=== PATIENT | male | born 1965 | race Caucasian/White ===

== ENCOUNTER 2021-03-13 17:43 | Emergency (ER) | payer SELFPAY ==
[~2021-03-13] VITALS: Ht 182.9 cm; Wt 73.0 kg
--- NOTE | 2021-03-13 17:58 | NUR ---
TO ER BED 4, [facility]IB[facility] 77 [facility] C/O HIGH BP 200 SYSTOLIC. AAOX3, BREATHING EVEN AND NON LABORED, DENIES ANY PAIN OR DISCOMFORT.
--- NOTE | 2021-03-13 18:10 | NUR ---
IV LINE ESTABLISHED BLOOD DRAWN AND SENT TO LAB.
[2021-03-13] MEDS ORDERED: LABETALOL HCL IV 100MG VIAL ONE (18:15)
[2021-03-13 18:20] LABS: BASOPHILS # (AUTO) 0.1 K/uL (0.0-0.2); BASOPHILS % (AUTO) 0.7 % (0.0-2.0); EOSINOPHILS % (AUTO) 10.6 % (0.0-6.0); HEMATOCRIT 32 % (39-51); HEMOGLOBIN 10.7 g/dL (13.5-17.5); LYMPHOCYTES # (AUTO) 1.4 K/uL (0.8-4.8); LYMPHOCYTES % (AUTO) 14.5 % (20.0-44.0); MEAN CORPUSCULAR HGB CONC 33 g/dl (31.0-36.0); MEAN CORPUSCULAR VOLUME 94 fL (80-96); MONOCYTES # (AUTO) 0.8 K/uL (0.1-1.30); MONOCYTES % (AUTO) 7.9 % (2.0-12.0); NEUTROPHILS # (AUTO) 6.5 K/uL (1.8-8.9); NEUTROPHILS % (AUTO) 66.3 % (43.0-81.0); PLATELET COUNT (AUTO) 275 K/uL (150-450); RED BLOOD CELL COUNT(AUTO) 3.42 MIL/uL (4.5-6.0); WHITE BLOOD COUNT (AUTO) 9.7 K/uL (4.3-11.0)
[2021-03-13 18:28] LABS: CALCIUM, SERUM 8.3 mg/dL (8.5-10.1); CARBON DIOXIDE 27 mmol/L (21-32); CHLORIDE 111 mmol/L (98-107); CREATININE 2.1 mg/dL (0.6-1.3); GLUCOSE 97 mg/dL (74-106); POTASSIUM 4.1 mmol/L (3.5-5.1); SODIUM SERUM 144 mmol/L (136-145); UREA NITROGEN, BLOOD 47 mg/dL (7-18)
[2021-03-13] MEDS ORDERED: LABETALOL 20 MG/4 ML VIAL IV ONE (18:30)
[2021-03-13] MEDS ORDERED: AMLO-213 PO (18:49)
--- NOTE | 2021-03-13 18:59 | NUR ---
DR MATA AT BEDSIDE
--- NOTE | 2021-03-13 19:00 | NUR ---
IV removed. Catheter intact and site benign. Pressure and 4x4 applied to site. No bleeding noted.Patient discharged to home in stable condition. Written and verbal after care instructions given. Patient verbalizes understanding of instruction.
[2021-03-13 19:10] VITALS: BP 170/87
== END 2021-03-13 19:10 | disposition home or self-care (01) ==
LOC: ER 18:11
DX: I12.9 Hypertensive chronic kidney disease with stage 1 through stage 4 chronic kidney disease, or unspecified chronic kidney disease (principal); E11.22 Type 2 diabetes mellitus with diabetic chronic kidney disease; N18.9 Chronic kidney disease, unspecified; Z79.899 Other long term (current) drug therapy
CPT/HCPCS: 36415; 80048; 84484; 85025; 93005; 96374; 99291; J3490 ×2

== ENCOUNTER 2022-12-03 16:24 | Emergency (ER) | payer MEDICARE, OTHER ==
[~2022-12-03] VITALS: Ht 182.9 cm; Wt 64.0 kg
[~2022-12-03 16:24] MED LIST: AMLO-213 PO
[2022-12-03 16:40] VITALS: TEMP 98.4
[2022-12-03] MEDS ORDERED: LIDOCAINE 1% INJ 50 ML MDV IJ ONE (17:00)
[2022-12-03] MEDS ORDERED: CLOP75TA15 PO (17:47)
[2022-12-03] MEDS ORDERED: ERGO500093 PO (17:47)
[2022-12-03] MEDS ORDERED: ATOR80TA PO (17:47)
[2022-12-03] MEDS ORDERED: HYDR-4077 PO (17:47)
[2022-12-03] MEDS ORDERED: ASPI-1169 PO (17:47)
[2022-12-03 17:58] LABS: BASOPHILS # (AUTO) 0.1 K/uL (0.0-0.2); EOSINOPHILS # (AUTO) 1.5 K/uL (0.0-0.7); EOSINOPHILS % (AUTO) 22.6 % (0.0-6.0); HEMATOCRIT 30 % (39-51); HEMOGLOBIN 9.7 g/dL (13.5-17.5); LYMPHOCYTES # (AUTO) 1.4 K/uL (0.8-4.8); MEAN CORPUSCULAR HEMOGLOBIN 31 PG (26.0-33.0); MEAN CORPUSCULAR HGB CONC 33 g/dl (31.0-36.0); MEAN CORPUSCULAR VOLUME 95 fL (80-96); MONOCYTES # (AUTO) 0.4 K/uL (0.1-1.30); MONOCYTES % (AUTO) 6.6 % (2.0-12.0); NEUTROPHILS # (AUTO) 3.4 K/uL (1.8-8.9); NEUTROPHILS % (AUTO) 49.8 % (43.0-81.0); PLATELET COUNT (AUTO) 202 K/uL (150-450); RED BLOOD CELL COUNT(AUTO) 3.11 MIL/uL (4.5-6.0); WHITE BLOOD COUNT (AUTO) 6.8 K/uL (4.3-11.0)
[2022-12-03 18:05] LABS: CALCIUM, SERUM 9.4 mg/dL (8.5-10.1); CREATININE 6.6 mg/dL (0.6-1.3); POTASSIUM 4.6 mmol/L (3.5-5.1)
[2022-12-03 18:11] LABS: INR 1.08 (0.91-1.10); PARTIAL THROMBOPLASTIN TIME 45.8 SEC (24.3-34.3); PROTHROMBIN TIME 11.3 SECS (9.2-11.1)
[2022-12-03 19:16] LABS: EOSINOPHILS % (MANUAL) 23 % (0-4); LYMPHOCYTES % (MANUAL) 24 % (16-48); MONOCYTES % (MANUAL) 8 % (0-11.0); NEUTROPHILS % (MANUAL) 45 (42-76)
[2022-12-03 19:17] LABS: ANISOCYTOSIS 1+; PLATELET ESTIMATE ADEQUATE
[2022-12-03] MEDS ORDERED: hydrALAZINE HCL IV 20 MG VIAL ONE (19:42)
[2022-12-03] MEDS ORDERED: hydrALAZINE HCL IV 20 MG VIAL IV ONE (20:00)
[2022-12-03 20:28] VITALS: BP 191/83; O2SAT 97
== END 2022-12-03 20:25 | disposition home or self-care (01) ==
LOC: ER 16:24
DX: T82.838A Hemorrhage due to vascular prosthetic devices, implants and grafts, initial encounter (principal); E11.22 Type 2 diabetes mellitus with diabetic chronic kidney disease; I12.0 Hypertensive chronic kidney disease with stage 5 chronic kidney disease or end stage renal disease; N18.6 End stage renal disease; E78.5 Hyperlipidemia, unspecified; Z99.2 Dependence on renal dialysis; Z79.899 Other long term (current) drug therapy
CPT/HCPCS: 99285; 96374; 71045; 93005; 85025; 80048; 36415; 85730; 86850; 85007; J0360; J3490; A6403

== ENCOUNTER 2023-11-04 16:40 | Inpatient (IN) | payer MEDICARE, OTHER ==
[~2023-11-04] VITALS: Ht 182.9 cm; Wt 60.8 kg
[~2023-11-04 16:40] MED LIST changes: -AMLO-213 PO; +ASPI-1169 PO; +ATOR80TA PO; +CLOP75TA15 PO; +ERGO500093 PO; +HYDR-4077 PO
[2023-11-04 17:06] LABS: BASOPHILS # (AUTO) 0.1 K/uL (0.0-0.2); BASOPHILS % (AUTO) 1.1 % (0.0-2.0); EOSINOPHILS # (AUTO) 0.9 K/uL (0.0-0.7); EOSINOPHILS % (AUTO) 16.7 % (0.0-6.0); HEMATOCRIT 28 % (39-51); HEMOGLOBIN 9.4 g/dL (13.5-17.5); LYMPHOCYTES # (AUTO) 0.9 K/uL (0.8-4.8); LYMPHOCYTES % (AUTO) 15.7 % (20.0-44.0); MEAN CORPUSCULAR HEMOGLOBIN 33 PG (26.0-33.0); MEAN CORPUSCULAR HGB CONC 34 g/dl (31.0-36.0); MEAN CORPUSCULAR VOLUME 98 fL (80-96); MONOCYTES # (AUTO) 0.6 K/uL (0.1-1.30); MONOCYTES % (AUTO) 10.3 % (2.0-12.0); NEUTROPHILS % (AUTO) 56.2 % (43.0-81.0); PLATELET COUNT (AUTO) 171 K/uL (150-450); RED BLOOD CELL COUNT(AUTO) 2.84 MIL/uL (4.5-6.0); RED CELL DISTRIBUTION WIDTH 16.5 % (11.5-15.0); WHITE BLOOD COUNT (AUTO) 5.4 K/uL (4.3-11.0)
[2023-11-04 17:13] LABS: CALCIUM, SERUM 8.7 mg/dL (8.5-10.1); CARBON DIOXIDE 31 mmol/L (21-32); CHLORIDE 95 mmol/L (98-107); CREATININE 3.6 mg/dL (0.6-1.3); GLUCOSE 122 mg/dL (74-106); POTASSIUM 3.2 mmol/L (3.5-5.1); SODIUM SERUM 130 mmol/L (136-145); UREA NITROGEN, BLOOD 40 mg/dL (7-18)
[2023-11-04] MEDS ORDERED: hydrALAZINE HCL IV 20 MG VIAL ONE (19:22)
[2023-11-04] MEDS: hydrALAZINE HCL IV 20 MG VIAL IV ONE ×3 (19:27→21:46)
[2023-11-04] MEDS ORDERED: DILTIAZEM HCL 25 MG IV ONE (20:36)
[2023-11-04] MEDS: DILTIAZEM HCL 25 MG IV IV ONE (20:40)
[2023-11-04] MEDS ORDERED: MAGNESIUM HYDROXIDE 30 ML UDC PO PRN (21:00)
[2023-11-04] MEDS ORDERED: Z GUARD REMEDY 4 OZ OINT TP PRN (21:00)
[2023-11-04] MEDS ORDERED: ONDANSETRON HCL/PF 4 MG/2 ML VIAL IVP PRN (21:00)
[2023-11-04] MEDS ORDERED: MAG HYDROX/AL HYDROX/SIMETH 30 ML UDC PO PRN (21:00)
[2023-11-04] MEDS ORDERED: ZOLPIDEM TARTRATE 5 MG TABLET PO PRN (21:00)
[2023-11-04] MEDS ORDERED: ENOXAPARIN SODIUM 30 MG/0.3 ML DISP.SYRIN SQ SCH (21:00)
[2023-11-04] MEDS ORDERED: ACETAMINOPHEN 325 MG TABLET PO PRN (21:00)
[2023-11-04] MEDS ORDERED: POTASSIUM CHLORIDE 20 MEQ TAB.PRT.SR PO ONE (23:31)
[2023-11-04] MEDS: POTASSIUM CHLORIDE 20 MEQ TAB.PRT.SR PO ONE (23:35)
[2023-11-04 23:40] VITALS: BP 205/86; TEMP 98.7; O2SAT 97
[2023-11-05] VITALS: BP 210/88; TEMP 98.1; O2SAT 95
[2023-11-05] MEDS: ENALAPRILAT INJ (1.25 MG/ML) 1.25 MG/ML VIAL IV SCH (01:26)
[2023-11-05 04:00] VITALS: BP 214/84; TEMP 97.5; O2SAT 95
[2023-11-05] MEDS: hydrALAZINE HCL IV 20 MG VIAL IV PRN (04:41)
[2023-11-05 06:45] LABS: BASOPHILS # (AUTO) 0.1 K/uL (0.0-0.2); BASOPHILS % (AUTO) 1.2 % (0.0-2.0); EOSINOPHILS % (AUTO) 19.3 % (0.0-6.0); HEMATOCRIT 29 % (39-51); HEMOGLOBIN 9.8 g/dL (13.5-17.5); LYMPHOCYTES # (AUTO) 0.7 K/uL (0.8-4.8); LYMPHOCYTES % (AUTO) 13.9 % (20.0-44.0); MEAN CORPUSCULAR HEMOGLOBIN 33 PG (26.0-33.0); MEAN CORPUSCULAR HGB CONC 34 g/dl (31.0-36.0); MEAN CORPUSCULAR VOLUME 98 fL (80-96); MONOCYTES # (AUTO) 0.5 K/uL (0.1-1.30); MONOCYTES % (AUTO) 10.6 % (2.0-12.0); NEUTROPHILS # (AUTO) 2.8 K/uL (1.8-8.9); PLATELET COUNT (AUTO) 163 K/uL (150-450); RED BLOOD CELL COUNT(AUTO) 2.96 MIL/uL (4.5-6.0); WHITE BLOOD COUNT (AUTO) 5.1 K/uL (4.3-11.0)
[2023-11-05 07:05] LABS: ALBUMIN 2.8 g/dL (3.4-5.0); BILIRUBIN,DIRECT 0.2 mg/dL (0.0-0.2); BILIRUBIN,TOTAL 0.6 mg/dL (0.2-1.0); CALCIUM, SERUM 8.7 mg/dL (8.5-10.1); CREATININE 4.9 mg/dL (0.6-1.3); MAGNESIUM 2.4 mg/dL (1.8-2.4); PHOSPHORUS 3.5 mg/dL (2.5-4.9); POTASSIUM 3.7 mmol/L (3.5-5.1)
[2023-11-05 07:19] LABS: THYROID STIMULATING HORMONE 5.44 uIU/mL (0.358-3.74)
[2023-11-05] MEDS: PANTOPRAZOLE 40 MG TABLET.DR PO SCH (07:45)
[2023-11-05 08:00] VITALS: BP 217/86; TEMP 97.6; O2SAT 96
[2023-11-05] MEDS ORDERED: hydrALAZINE HCL IV 20 MG VIAL IV PRN (08:30)
[2023-11-05] MEDS ORDERED: TEMA15CA PO (08:35)
[2023-11-05] MEDS ORDERED: FERR210T PO (08:35)
[2023-11-05] MEDS ORDERED: BRIM5DRO2 RIGHTEYE (08:35)
[2023-11-05] MEDS ORDERED: CYAN10006 IM (08:35)
[2023-11-05] MEDS ORDERED: NIFE30TA91 PO (08:35)
[2023-11-05] MEDS: CLOPIDOGREL BISULFATE 75 MG TABLET PO SCH (08:58)
[2023-11-05] MEDS: hydrALAZINE HCL 50 MG TABLET PO SCH (08:58)
[2023-11-05] MEDS: ASPIRIN 81 MG TAB.CHEW PO SCH (08:58)
[2023-11-05] MEDS: AMLODIPINE BESYLATE 10 MG TABLET PO SCH (08:58)
[2023-11-05] MEDS: HEPARIN SODIUM, PORCINE 5000 UNITS/1 ML VIAL SQ SCH (09:32)
[2023-11-05 12:00] VITALS: BP 196/86; TEMP 98.2; O2SAT 98
[2023-11-05 16:00] VITALS: BP 182/83; TEMP 98.5; O2SAT 97
[2023-11-05] MEDS: COMBIGAN RIGHTEYE SCH (17:20)
[2023-11-05] MEDS: NIFEDIPINE XL 60 MG TAB.ER.24 PO SCH (18:31)
[2023-11-05] MEDS ORDERED: NEPRO VAN 237 ML CAN PO PRN ×2 (19:00)
[2023-11-05 20:00] VITALS: BP 158/73; TEMP 98.5; O2SAT 95
[2023-11-05] MEDS: ATORVASTATIN 40 MG TABLET PO SCH (21:06)
[2023-11-06] VITALS: BP 155/71; TEMP 98.3; O2SAT 96
[2023-11-06 04:00] VITALS: BP 160/74; TEMP 98.1; O2SAT 97
[2023-11-06 06:42] LABS: BASOPHILS # (AUTO) 0.1 K/uL (0.0-0.2); BASOPHILS % (AUTO) 1.3 % (0.0-2.0); EOSINOPHILS # (AUTO) 1.2 K/uL (0.0-0.7); EOSINOPHILS % (AUTO) 20.2 % (0.0-6.0); HEMATOCRIT 32 % (39-51); HEMOGLOBIN 10.9 g/dL (13.5-17.5); LYMPHOCYTES # (AUTO) 0.9 K/uL (0.8-4.8); LYMPHOCYTES % (AUTO) 14.8 % (20.0-44.0); MEAN CORPUSCULAR HEMOGLOBIN 33 PG (26.0-33.0); MEAN CORPUSCULAR HGB CONC 34 g/dl (31.0-36.0); MEAN CORPUSCULAR VOLUME 99 fL (80-96); MONOCYTES # (AUTO) 0.5 K/uL (0.1-1.30); NEUTROPHILS # (AUTO) 3.3 K/uL (1.8-8.9); NEUTROPHILS % (AUTO) 54.7 % (43.0-81.0); PLATELET COUNT (AUTO) 196 K/uL (150-450); RED BLOOD CELL COUNT(AUTO) 3.28 MIL/uL (4.5-6.0); RED CELL DISTRIBUTION WIDTH 15.8 % (11.5-15.0)
[2023-11-06 07:44] LABS: BILIRUBIN,TOTAL 0.6 mg/dL (0.2-1.0); CALCIUM, SERUM 8.4 mg/dL (8.5-10.1); CREATININE 3.8 mg/dL (0.6-1.3); MAGNESIUM 2.1 mg/dL (1.8-2.4); PHOSPHORUS 3.2 mg/dL (2.5-4.9); TOTAL PROTEIN, SERUM 7.3 g/dL (6.4-8.2)
[2023-11-06 08:00] VITALS: BP 179/72; TEMP 98.4; O2SAT 94
[2023-11-06 11:34] LABS: LYMPHOCYTES % (MANUAL) 11 % (16-48); NEUTROPHILS % (MANUAL) 63 (42-76)
[2023-11-06 11:35] LABS: ANISOCYTOSIS 1+; BASOPHILS % (MANUAL) 0 % (0.0-2.0); EOSINOPHILS % (MANUAL) 18 % (0-4); MONOCYTES % (MANUAL) 8 % (0-11.0); PLATELET ESTIMATE ADEQUATE
[2023-11-06 12:00] VITALS: BP 130/68; TEMP 98.2; O2SAT 95
[2023-11-06 16:00] VITALS: BP 141/64; TEMP 98.1; O2SAT 95
[2023-11-06] MEDS ORDERED: NIFE-34 PO (17:32)
[2023-11-06 20:00] VITALS: BP 172/77; TEMP 98.3; O2SAT 96
[2023-11-07] VITALS: BP 166/75; TEMP 97.9; O2SAT 96
[2023-11-07 04:00] VITALS: BP 162/71; TEMP 98.4; O2SAT 97
[2023-11-07 08:40] VITALS: BP 131/72
[2023-11-07 13:10] LABS: HEPATITIS B SURFACE AB Reactive (.)
== END 2023-11-07 10:00 | disposition home or self-care (01) | DRG 304 ==
LOC: ER 16:59 → TELE-TD 22:13 → TELE1 11-06 10:02
PROVIDERS: ADMIT Nurse Practitioner Family; ATTEND Internal Medicine
PROC: 5A1D70Z Performance of Urinary Filtration, Intermittent, Less than 6 Hours Per Day (ICD-10-PCS; principal; 2023-11-05)
DX: I16.0 Hypertensive urgency (principal); N18.6 End stage renal disease; I50.22 Chronic systolic (congestive) heart failure; E87.1 Hypo-osmolality and hyponatremia; E11.22 Type 2 diabetes mellitus with diabetic chronic kidney disease; I13.2 Hypertensive heart and chronic kidney disease with heart failure and with stage 5 chronic kidney disease, or end stage renal disease; I25.10 Atherosclerotic heart disease of native coronary artery without angina pectoris; Z99.2 Dependence on renal dialysis; D64.9 Anemia, unspecified; Z95.5 Presence of coronary angioplasty implant and graft; Z79.02 Long term (current) use of antithrombotics/antiplatelets; Z79.82 Long term (current) use of aspirin; Z79.899 Other long term (current) drug therapy; E78.5 Hyperlipidemia, unspecified; M89.8X9 Other specified disorders of bone, unspecified site
CPT/HCPCS: 36415; 71045-TC; 80048-TC; 80053-TC; 80076-TC; 83735-TC; 84100-TC; 84443-TC; 84484-TC; 85025-TC; 86706; 87340; 90935-TC; 93307-TC; G0378; J0360; J1644; J3490; J7030

== ENCOUNTER 2024-03-12 01:30 | Inpatient (IN) | payer MEDICARE, OTHER ==
[~2024-03-12] VITALS: Ht 182.9 cm; Wt 58.1 kg
[2024-03-12] VITALS (44 sets, daily range): BP systolic 121–179; BP diastolic 46–70; TEMP 97.7–99.3; O2SAT 97–100
[~2024-03-12 01:30] MED LIST changes: +BRIM5DRO2 RIGHTEYE; +CYAN10006 IM; +FERR210T PO; +NIFE-34 PO; +NIFE30TA91 PO; +TEMA15CA PO
[2024-03-12] MEDS ORDERED: hydrALAZINE HCL IV 20 MG VIAL ONE ×2 (01:43→02:27)
[2024-03-12] MEDS: hydrALAZINE HCL IV 20 MG VIAL IV ONE ×2 (01:50→02:30)
[2024-03-12] MEDS ORDERED: ONDANSETRON HCL/PF 4 MG/2 ML VIAL ONE (01:52)
[2024-03-12] MEDS ORDERED: MORPHINE SULFATE INJ 4 MG/ML DISP.SYRIN ONE (01:52)
[2024-03-12] MEDS: ONDANSETRON HCL/PF 4 MG/2 ML VIAL IV ONE (01:55)
[2024-03-12] MEDS: MORPHINE SULFATE INJ 2 MG/ML DISP.SYRIN IV ONE (01:55)
[2024-03-12 01:56] LABS: EOSINOPHILS # (AUTO) 0.4 K/uL (0.0-0.7); NEUTROPHILS # (AUTO) 5.2 K/uL (1.8-8.9); PLATELET COUNT (AUTO) 211 K/uL (150-450)
[2024-03-12 02:02] LABS: BASOPHILS % (AUTO) 0.6 % (0.0-2.0); EOSINOPHILS % (AUTO) 6.1 % (0.0-6.0); HEMATOCRIT 26 % (39-51); HEMOGLOBIN 8.6 g/dL (13.5-17.5); LYMPHOCYTES # (AUTO) 0.7 K/uL (0.8-4.8); LYMPHOCYTES % (AUTO) 9.6 % (20.0-44.0); MEAN CORPUSCULAR HEMOGLOBIN 35 PG (26.0-33.0); MEAN CORPUSCULAR HGB CONC 34 g/dl (31.0-36.0); MEAN CORPUSCULAR VOLUME 105 fL (80-96); MONOCYTES # (AUTO) 0.6 K/uL (0.1-1.30); NEUTROPHILS % (AUTO) 74.7 % (43.0-81.0); RED BLOOD CELL COUNT(AUTO) 2.44 MIL/uL (4.5-6.0); RED CELL DISTRIBUTION WIDTH 14.4 % (11.5-15.0)
[2024-03-12 02:03] LABS: CALCIUM, SERUM 8.4 mg/dL (8.5-10.1); CARBON DIOXIDE 30 mmol/L (21-32); CHLORIDE 100 mmol/L (98-107); CREATININE 3.9 mg/dL (0.6-1.3); GLUCOSE 106 mg/dL (74-106); POTASSIUM 4.2 mmol/L (3.5-5.1); SODIUM SERUM 136 mmol/L (136-145); UREA NITROGEN, BLOOD 29 mg/dL (7-18)
[2024-03-12 02:08] LABS: INR 1.11 (0.91-1.10); PARTIAL THROMBOPLASTIN TIME 30.8 SEC (24.3-34.3); PROTHROMBIN TIME 11.7 SECS (9.2-11.1)
[2024-03-12 02:09] LABS: ALANINE AMINOTRANSFERASE < 6 U/L (12-78); ALBUMIN 2.7 g/dL (3.4-5.0); ALKALINE PHOSPHATASE 181 U/L (46-116); ASPARTATE AMINOTRANSFERASE 21 U/L (15-37); BILIRUBIN,DIRECT 0.1 mg/dL (0.0-0.2); BILIRUBIN,TOTAL 0.7 mg/dL (0.2-1.0); TOTAL PROTEIN, SERUM 7.5 g/dL (6.4-8.2)
[2024-03-12] MEDS ORDERED: ASPIRIN 325 MG TABLET ONE (02:27)
[2024-03-12] MEDS: ASPIRIN 325 MG TABLET PO ONE (02:30)
[2024-03-12 03:02] LABS: EOSINOPHILS % (MANUAL) 1 % (0-4); LYMPHOCYTES % (MANUAL) 6 % (16-48); MONOCYTES % (MANUAL) 4 % (0-11.0); NEUTROPHILS % (MANUAL) 89 (42-76)
[2024-03-12 03:03] LABS: PLATELET ESTIMATE ADEQUATE
[2024-03-12 03:05] LABS: ANISOCYTOSIS 1+
[2024-03-12] MEDS ORDERED: NICARDIPINE IN DEXTROSE,ISO-OS 200 ML IV ONE (03:06)
[2024-03-12] MEDS: NICARDIPINE IN NACL, ISO-OSM 200 ML IV PRN (03:13)
[2024-03-12] MEDS ORDERED: NICARDIPINE HCL 40 MG in IV NS 0.9% 184 ML IV PRN ×2 (03:30→04:30)
[2024-03-12] MEDS: NITROGLYCERIN PACKET 1 GM PACKET TOP SCH (04:30)
[2024-03-12] MEDS ORDERED: Z GUARD REMEDY 4 OZ OINT TP PRN (04:30)
[2024-03-12] MEDS ORDERED: ONDANSETRON HCL/PF 4 MG/2 ML VIAL IVP PRN (04:30)
[2024-03-12] MEDS ORDERED: FERR210T PO (04:31)
[2024-03-12] MEDS ORDERED: ASPI-1420 PO (04:31)
[2024-03-12] MEDS ORDERED: MIRT-91 PO (04:50)
[2024-03-12] MEDS ORDERED: SENN8.6T19 PO (04:50)
[2024-03-12] MEDS ORDERED: CLON1PAT12 TP (04:50)
[2024-03-12] MEDS ORDERED: PANT40TA49 PO (04:50)
[2024-03-12] MEDS ORDERED: DOXA2TAB2 PO (04:50)
[2024-03-12] MEDS ORDERED: BRIM5DRO5 RIGHTEYE (04:50)
[2024-03-12] MEDS ORDERED: NETA2.5D3 EACHEYE (04:50)
[2024-03-12] MEDS ORDERED: ERGO500093 PO (04:50)
[2024-03-12] MEDS ORDERED: LABE100T5 PO (04:50)
[2024-03-12] MEDS ORDERED: POLY17PO4 PO (04:50)
[2024-03-12] MEDS ORDERED: ASCO-352 PO (04:50)
[2024-03-12] MEDS ORDERED: VIT1TABL46 PO (04:50)
[2024-03-12] MEDS ORDERED: NIFE90TA38 MT (04:50)
[2024-03-12] MEDS ORDERED: ISOS60TA72 PO (04:50)
[2024-03-12] MEDS ORDERED: TRAM50TA2 PO (04:50)
[2024-03-12] MEDS ORDERED: LEVO137T2 PO (04:50)
[2024-03-12] MEDS ORDERED: FLUO20TA28 PO (04:50)
[2024-03-12] MEDS ORDERED: NICARDIPINE IN NACL, ISO-OSM 200 ML IV PRN (06:30)
[2024-03-12] MEDS ORDERED: NICARDIPINE IN DEXTROSE,ISO-OS 200 ML IV PRN (06:30)
[2024-03-12] MEDS: BLOOD SUGAR DIAGNOSTIC 1 EACH STRIP IN SCH (07:37)
[2024-03-12] MEDS: PANTOPRAZOLE 40 MG TABLET.DR PO SCH ×2 (07:39→17:32)
[2024-03-12] MEDS: LABETALOL HCL (100MG) 100 MG TABLET PO SCH ×2 (08:04→13:00)
[2024-03-12] MEDS ORDERED: *INS REG3 SQ (08:05)
[2024-03-12] MEDS ORDERED: ACET125T3 PO (08:05)
[2024-03-12] MEDS ORDERED: CLON1PAT2 TD (08:05)
[2024-03-12] MEDS ORDERED: AMIN30LI66 PO (08:05)
[2024-03-12] MEDS: NIFEDIPINE XL 60 MG TAB.ER.24 PO SCH (08:05)
[2024-03-12] MEDS: MORPHINE SULFATE INJ 4 MG/ML DISP.SYRIN IV PRN (08:06)
[2024-03-12] MEDS ORDERED: ISOSORBIDE MONONITRATE (30MG) 30 MG TAB.SR.24H PO SCH (09:00)
[2024-03-12] MEDS ORDERED: DOXAZOSIN MESYLATE (1 MG) 1 MG TABLET PO SCH (09:30)
[2024-03-12] MEDS ORDERED: FERRIC CITRATE 210 MG XX SCH (09:30)
[2024-03-12] MEDS: FLUOXETINE HCL 20 MG CAPSULE PO SCH (10:39)
[2024-03-12] MEDS: ASCORBIC ACID 500 MG TABLET PO SCH (10:39)
[2024-03-12] MEDS: POLYETHYLENE GLYCOL 3350 17 GM POWD.PACK PO SCH (10:41)
[2024-03-12] MEDS: LEVOTHYROXINE SODIUM 137 MCG TABLET PO SCH (10:41)
[2024-03-12] MEDS: VIT B CMPLX 3/FA/VIT C/BIOTIN 1 TAB TABLET PO SCH (10:41)
[2024-03-12] MEDS: ISOSORBIDE MONONITRATE (30MG) 30 MG TAB.SR.24H PO SCH (10:41)
[2024-03-12] MEDS: NIFEdipine XL (30MG) 30 MG TAB PO SCH (10:45)
[2024-03-12] MEDS: DEXTROSE 50%-WATER 50 ML DISP.SYRIN IV PRN (12:27)
[2024-03-12] MEDS: hydrALAZINE HCL 50 MG TABLET PO SCH (13:00)
[2024-03-12] MEDS: PROSOURCE / PROSTAT (PYXIS) 30 ML UDC PO SCH (17:34)
[2024-03-12] MEDS: BRIMONIDINE RIGHTEYE SCH (20:27)
[2024-03-12] MEDS: TIMOLOL OPTH RIGHTEYE SCH (20:27)
[2024-03-12] MEDS: DOXAZOSIN MESYLATE (1 MG) 1 MG TABLET PO SCH (21:13)
[2024-03-12] MEDS: MIRTAZAPINE 15 MG TABLET PO SCH (21:14)
[2024-03-12] MEDS: ATORVASTATIN 40 MG TABLET PO SCH (21:14)
[2024-03-12] MEDS: INSULIN REGULAR, HUMAN 100 UNIT/ML 3 ML VIAL SQ PRN (21:44)
[2024-03-13] VITALS (23 sets, daily range): BP systolic 120–166; BP diastolic 47–67; TEMP 97.8–99.1; O2SAT 100
[2024-03-13 04:38] LABS: BASOPHILS # (AUTO) 0.1 K/uL (0.0-0.2); EOSINOPHILS # (AUTO) 0.8 K/uL (0.0-0.7); EOSINOPHILS % (AUTO) 12.4 % (0.0-6.0); HEMATOCRIT 27 % (39-51); HEMOGLOBIN 8.8 g/dL (13.5-17.5); LYMPHOCYTES # (AUTO) 0.6 K/uL (0.8-4.8); LYMPHOCYTES % (AUTO) 8.5 % (20.0-44.0); MEAN CORPUSCULAR HEMOGLOBIN 34 PG (26.0-33.0); MEAN CORPUSCULAR HGB CONC 33 g/dl (31.0-36.0); MEAN CORPUSCULAR VOLUME 103 fL (80-96); MONOCYTES # (AUTO) 0.6 K/uL (0.1-1.30); MONOCYTES % (AUTO) 8.8 % (2.0-12.0); NEUTROPHILS # (AUTO) 4.6 K/uL (1.8-8.9); NEUTROPHILS % (AUTO) 69.3 % (43.0-81.0); PLATELET COUNT (AUTO) 219 K/uL (150-450); RED BLOOD CELL COUNT(AUTO) 2.57 MIL/uL (4.5-6.0); RED CELL DISTRIBUTION WIDTH 14.7 % (11.5-15.0); WHITE BLOOD COUNT (AUTO) 6.7 K/uL (4.3-11.0)
[2024-03-13 04:54] LABS: INR 1.1 (0.91-1.10); PARTIAL THROMBOPLASTIN TIME 32.1 SEC (24.3-34.3); PROTHROMBIN TIME 11.6 SECS (9.2-11.1)
[2024-03-13 04:56] LABS: ALBUMIN 2.6 g/dL (3.4-5.0); BILIRUBIN,TOTAL 0.5 mg/dL (0.2-1.0); CALCIUM, SERUM 8.4 mg/dL (8.5-10.1); CREATININE 3.4 mg/dL (0.6-1.3); MAGNESIUM 1.9 mg/dL (1.8-2.4); PHOSPHORUS 3.3 mg/dL (2.5-4.9); POTASSIUM 3.4 mmol/L (3.5-5.1); TOTAL PROTEIN, SERUM 7.6 g/dL (6.4-8.2)
[2024-03-13] MEDS: NITROGLYCERIN 30 GM TUBE TP STA (08:14)
[2024-03-13] MEDS ORDERED: BUPIVACAINE 0.5 % PF 150 MG/30 ML VIAL ONE (08:30)
[2024-03-13] MEDS ORDERED: VANCOMYCIN 1 GM VIAL ONE (08:30)
[2024-03-13] MEDS ORDERED: ANESTHESIA TRAY IN PYXIS 1 EA TRAY MC ONE (08:30)
[2024-03-13] MEDS ORDERED: FENTANYL PF 250MCG/5ML AMPUL ONE (09:04)
[2024-03-13] MEDS ORDERED: ALBUMIN 5% 0 ML IV ONE (09:04)
[2024-03-13] MEDS ORDERED: TRANEXAMIC ACID 1,000 MG/10 ML VIAL ONE (09:05)
[2024-03-13] MEDS ORDERED: ONDANSETRON HCL/PF 4 MG/2 ML VIAL IVP PRN (11:30)
[2024-03-13] MEDS ORDERED: FENTANYL PF 100MCG/2ML AMPUL IV PRN ×2 (11:30)
[2024-03-13] MEDS: ROCKLATAN RIGHTEYE SCH (12:11)
[2024-03-13] MEDS ORDERED: MORPHINE SULFATE INJ 2 MG/ML DISP.SYRIN IV PRN (13:00)
[2024-03-13] MEDS: IV D5/0.45 NACL W/20 MEQ KCL 1L IV PRN (13:04)
[2024-03-13] MEDS: ANCEF 1 GM/50 ML D5W IV SCH (13:04)
[2024-03-13] MEDS: HYDROCODONE/APAP 10/325MG TABLET PO PRN (19:28)
[2024-03-13] MEDS: HEPARIN SODIUM, PORCINE 5000 UNITS/1 ML VIAL SQ SCH (21:00)
[2024-03-14] VITALS (20 sets, daily range): BP systolic 112–187; BP diastolic 43–66; TEMP 97.6–99.2; O2SAT 97–100
[2024-03-14] MEDS ORDERED: IV PREMIX D5 1/2NS + KCL 1,000 ML IV ONE (01:51)
[2024-03-14 04:43] LABS: BASOPHILS % (AUTO) 0.5 % (0.0-2.0); EOSINOPHILS # (AUTO) 0.3 K/uL (0.0-0.7); EOSINOPHILS % (AUTO) 5.9 % (0.0-6.0); HEMATOCRIT 23 % (39-51); HEMOGLOBIN 7.6 g/dL (13.5-17.5); LYMPHOCYTES # (AUTO) 0.4 K/uL (0.8-4.8); LYMPHOCYTES % (AUTO) 9.2 % (20.0-44.0); MEAN CORPUSCULAR HEMOGLOBIN 35 PG (26.0-33.0); MEAN CORPUSCULAR HGB CONC 33 g/dl (31.0-36.0); MEAN CORPUSCULAR VOLUME 105 fL (80-96); MONOCYTES # (AUTO) 0.6 K/uL (0.1-1.30); MONOCYTES % (AUTO) 12.7 % (2.0-12.0); NEUTROPHILS # (AUTO) 3.3 K/uL (1.8-8.9); NEUTROPHILS % (AUTO) 71.7 % (43.0-81.0); PLATELET COUNT (AUTO) 186 K/uL (150-450); WHITE BLOOD COUNT (AUTO) 4.6 K/uL (4.3-11.0)
[2024-03-14 04:48] LABS: CALCIUM, SERUM 8.2 mg/dL (8.5-10.1); CREATININE 5.6 mg/dL (0.6-1.3); POTASSIUM 4.1 mmol/L (3.5-5.1)
[2024-03-14] MEDS: SENNOSIDES 8.6 MG TABLET PO PRN (05:14)
[2024-03-14] MEDS: ACETAMINOPHEN 325 MG TABLET PO PRN (11:33)
[2024-03-14] MEDS: FERRLICET 125MG in 100 ML NS IVPB IV SCH (14:27)
[2024-03-14] MEDS ORDERED: IV D5/0.45 NACL W/20 MEQ KCL 1L IV SCH (15:01)
[2024-03-15] VITALS (11 sets, daily range): BP systolic 109–133; BP diastolic 43–49; TEMP 97.5–99.3; O2SAT 96–100
[2024-03-15 07:05] LABS: CALCIUM, SERUM 8.3 mg/dL (8.5-10.1); CREATININE 4.8 mg/dL (0.6-1.3); POTASSIUM 3.9 mmol/L (3.5-5.1)
[2024-03-15 08:17] LABS: BASOPHILS % (AUTO) 0.8 % (0.0-2.0); EOSINOPHILS # (AUTO) 0.3 K/uL (0.0-0.7); EOSINOPHILS % (AUTO) 4.9 % (0.0-6.0); LYMPHOCYTES # (AUTO) 0.5 K/uL (0.8-4.8); LYMPHOCYTES % (AUTO) 9.1 % (20.0-44.0); MEAN CORPUSCULAR HEMOGLOBIN 34 PG (26.0-33.0); MEAN CORPUSCULAR HGB CONC 32 g/dl (31.0-36.0); MEAN CORPUSCULAR VOLUME 106 fL (80-96); MONOCYTES # (AUTO) 0.6 K/uL (0.1-1.30); MONOCYTES % (AUTO) 10.9 % (2.0-12.0); NEUTROPHILS # (AUTO) 4.1 K/uL (1.8-8.9); NEUTROPHILS % (AUTO) 74.3 % (43.0-81.0); PLATELET COUNT (AUTO) 178 K/uL (150-450); RED CELL DISTRIBUTION WIDTH 15.5 % (11.5-15.0); WHITE BLOOD COUNT (AUTO) 5.5 K/uL (4.3-11.0)
[2024-03-15 08:35] LABS: RED BLOOD CELL COUNT(AUTO) 1.86 MIL/uL (4.5-6.0)
[2024-03-15 08:37] LABS: HEMATOCRIT 20 % (39-51); HEMOGLOBIN 6.4 g/dL (13.5-17.5)
[2024-03-15] MEDS: ASPIRIN 81 MG TAB.CHEW PO SCH (08:56)
[2024-03-15] MEDS: CLOPIDOGREL BISULFATE 75 MG TABLET PO SCH (08:58)
[2024-03-15] MEDS: EPOETIN ALFA-EPBX 4,000 UNIT/ML VIAL SQ ONE (08:58)
[2024-03-15 09:55] LABS: HEMOGLOBIN 6.4 g/dL (13.5-17.5)
[2024-03-15] MEDS: CLONIDINE HCL 0.2MG/24H PTWK 1 EA PATCH TD SCH (10:56)
[2024-03-15 11:23] LABS: LYMPHOCYTES % (MANUAL) 9 % (16-48); MONOCYTES % (MANUAL) 7 % (0-11.0); NEUTROPHILS % (MANUAL) 81 (42-76)
[2024-03-15 11:24] LABS: ANISOCYTOSIS 1+; EOSINOPHILS % (MANUAL) 3 % (0-4); PLATELET ESTIMATE ADEQUATE
[2024-03-16] VITALS: BP 108/46; TEMP 97.4; O2SAT 100
[2024-03-16 04:00] VITALS: BP 116/50; TEMP 97.3; O2SAT 97
[2024-03-16 06:55] LABS: BASOPHILS % (AUTO) 0.8 % (0.0-2.0); EOSINOPHILS # (AUTO) 0.4 K/uL (0.0-0.7); EOSINOPHILS % (AUTO) 7.2 % (0.0-6.0); HEMATOCRIT 22 % (39-51); HEMOGLOBIN 7.3 g/dL (13.5-17.5); LYMPHOCYTES # (AUTO) 0.6 K/uL (0.8-4.8); LYMPHOCYTES % (AUTO) 10.3 % (20.0-44.0); MEAN CORPUSCULAR HEMOGLOBIN 33 PG (26.0-33.0); MEAN CORPUSCULAR HGB CONC 33 g/dl (31.0-36.0); MEAN CORPUSCULAR VOLUME 100 fL (80-96); MONOCYTES # (AUTO) 0.6 K/uL (0.1-1.30); MONOCYTES % (AUTO) 10.8 % (2.0-12.0); NEUTROPHILS % (AUTO) 70.9 % (43.0-81.0); PLATELET COUNT (AUTO) 187 K/uL (150-450); RED BLOOD CELL COUNT(AUTO) 2.18 MIL/uL (4.5-6.0); RED CELL DISTRIBUTION WIDTH 18.3 % (11.5-15.0); WHITE BLOOD COUNT (AUTO) 5.6 K/uL (4.3-11.0)
[2024-03-16 08:00] VITALS: BP 103/58; TEMP 98.2; O2SAT 97
[2024-03-16] MEDS: ERGOCALCIFEROL (VITAMIN D 2) 50,000 UNIT CAPSULE PO SCH (09:24)
[2024-03-16] MEDS ORDERED: NEPRO VAN 237 ML CAN PO PRN (12:30)
[2024-03-16 16:00] VITALS: BP 103/48; TEMP 97.4; O2SAT 100
[2024-03-16 20:00] VITALS: BP 136/50; TEMP 98; O2SAT 99
[2024-03-17 04:00] VITALS: BP 175/61; TEMP 98.8; O2SAT 100
[2024-03-17 06:40] LABS: BASOPHILS # (AUTO) 0.1 K/uL (0.0-0.2); BASOPHILS % (AUTO) 1.1 % (0.0-2.0); EOSINOPHILS # (AUTO) 0.5 K/uL (0.0-0.7); EOSINOPHILS % (AUTO) 10.7 % (0.0-6.0); HEMATOCRIT 22 % (39-51); HEMOGLOBIN 7.5 g/dL (13.5-17.5); LYMPHOCYTES # (AUTO) 0.5 K/uL (0.8-4.8); LYMPHOCYTES % (AUTO) 10.4 % (20.0-44.0); MEAN CORPUSCULAR HEMOGLOBIN 34 PG (26.0-33.0); MEAN CORPUSCULAR HGB CONC 34 g/dl (31.0-36.0); MEAN CORPUSCULAR VOLUME 100 fL (80-96); MONOCYTES # (AUTO) 0.6 K/uL (0.1-1.30); MONOCYTES % (AUTO) 12.1 % (2.0-12.0); NEUTROPHILS # (AUTO) 3.1 K/uL (1.8-8.9); NEUTROPHILS % (AUTO) 65.7 % (43.0-81.0); PLATELET COUNT (AUTO) 212 K/uL (150-450); RED BLOOD CELL COUNT(AUTO) 2.22 MIL/uL (4.5-6.0); RED CELL DISTRIBUTION WIDTH 17.2 % (11.5-15.0); WHITE BLOOD COUNT (AUTO) 4.8 K/uL (4.3-11.0)
[2024-03-17 07:21] LABS: CALCIUM, SERUM 8.5 mg/dL (8.5-10.1); CREATININE 4.6 mg/dL (0.6-1.3); PHOSPHORUS 3.9 mg/dL (2.5-4.9); POTASSIUM 3.9 mmol/L (3.5-5.1)
[2024-03-17 08:00] VITALS: BP 176/59; TEMP 98.8; O2SAT 100
[2024-03-17 20:00] VITALS: BP 158/59; TEMP 98.1; O2SAT 96
[2024-03-18 06:51] LABS: BASOPHILS # (AUTO) 0.1 K/uL (0.0-0.2); EOSINOPHILS # (AUTO) 0.6 K/uL (0.0-0.7); EOSINOPHILS % (AUTO) 11.4 % (0.0-6.0); HEMATOCRIT 21 % (39-51); HEMOGLOBIN 7.2 g/dL (13.5-17.5); LYMPHOCYTES # (AUTO) 0.5 K/uL (0.8-4.8); LYMPHOCYTES % (AUTO) 10.6 % (20.0-44.0); MEAN CORPUSCULAR HEMOGLOBIN 34 PG (26.0-33.0); MEAN CORPUSCULAR HGB CONC 34 g/dl (31.0-36.0); MEAN CORPUSCULAR VOLUME 101 fL (80-96); MONOCYTES # (AUTO) 0.6 K/uL (0.1-1.30); MONOCYTES % (AUTO) 11.9 % (2.0-12.0); NEUTROPHILS # (AUTO) 3.4 K/uL (1.8-8.9); NEUTROPHILS % (AUTO) 65.1 % (43.0-81.0); PLATELET COUNT (AUTO) 227 K/uL (150-450); RED BLOOD CELL COUNT(AUTO) 2.12 MIL/uL (4.5-6.0); RED CELL DISTRIBUTION WIDTH 17.6 % (11.5-15.0); WHITE BLOOD COUNT (AUTO) 5.2 K/uL (4.3-11.0)
[2024-03-18 07:07] LABS: CALCIUM, SERUM 8.7 mg/dL (8.5-10.1); MAGNESIUM 1.8 mg/dL (1.8-2.4); PHOSPHORUS 4.7 mg/dL (2.5-4.9); POTASSIUM 4.4 mmol/L (3.5-5.1)
[2024-03-18 09:00] VITALS: BP 159/59; TEMP 98.2; O2SAT 100
[2024-03-18 21:00] VITALS: BP 157/77; TEMP 97.6; O2SAT 96
[2024-03-19] MEDS: hydrALAZINE HCL 25 MG TABLET PO PRN (04:42)
[2024-03-19 09:00] VITALS: BP 218/73; TEMP 98.3; O2SAT 96
[2024-03-19] MEDS: hydrALAZINE HCL IV 20 MG VIAL IV ONE (11:34)
[2024-03-19] MEDS: MINOXIDIL (2.5MG) 2.5 MG TABLET PO SCH (15:54)
[2024-03-19] MEDS: NIFEDIPINE XL 60 MG TAB.ER.24 PO SCH (16:50)
[2024-03-19] MEDS: ISOSORBIDE DINITRATE (20MG) 20 MG TABLET PO SCH (18:03)
[2024-03-19 22:00] VITALS: BP 150/60; TEMP 98.5; O2SAT 100
[2024-03-20 09:00] VITALS: BP 130/60; TEMP 97.5; O2SAT 100
[2024-03-20] MEDS ORDERED: DOXA1TAB4 PO (10:32)
[2024-03-20] MEDS ORDERED: HEPA50008 SQ (10:32)
[2024-03-20] MEDS ORDERED: ISOS20TA8 PO (10:32)
[2024-03-20] MEDS ORDERED: NIFE-34 PO (10:32)
[2024-03-20] MEDS ORDERED: MINO2.5T PO (10:32)
[2024-03-20] MEDS ORDERED: NITR1OIN2 TOP (10:32)
[2024-03-20 12:21] VITALS: BP 130/65
== END 2024-03-20 14:22 | DRG 521 ==
LOC: ER 01:41 → ICU 03:39 → TELE1 03-14 17:20 → MEDSG1 03-16 08:57
PROVIDERS: ADMIT Nurse Practitioner Acute Care; ATTEND Nurse Practitioner Acute Care
PROC: 5A1D70Z Performance of Urinary Filtration, Intermittent, Less than 6 Hours Per Day (ICD-10-PCS; 2024-03-12)
PROC: 0SRR0JA Replacement of Right Hip Joint, Femoral Surface with Synthetic Substitute, Uncemented, Open Approach (ICD-10-PCS; principal; 2024-03-13)
PROC: 30233N1 Transfusion of Nonautologous Red Blood Cells into Peripheral Vein, Percutaneous Approach (ICD-10-PCS; 2024-03-15)
DX: S72.034A Nondisplaced midcervical fracture of right femur, initial encounter for closed fracture (principal); I21.A1 Myocardial infarction type 2; N18.6 End stage renal disease; I50.33 Acute on chronic diastolic (congestive) heart failure; Z68.1 Body mass index [BMI] 19.9 or less, adult; R64 Cachexia; E44.0 Moderate protein-calorie malnutrition; D68.59 Other primary thrombophilia; I13.2 Hypertensive heart and chronic kidney disease with heart failure and with stage 5 chronic kidney disease, or end stage renal disease; D62 Acute posthemorrhagic anemia; I16.0 Hypertensive urgency; W18.11XA Fall from or off toilet without subsequent striking against object, initial encounter; Y92.129 Unspecified place in nursing home as the place of occurrence of the external cause; D53.9 Nutritional anemia, unspecified; Z79.02 Long term (current) use of antithrombotics/antiplatelets; Z79.899 Other long term (current) drug therapy; Z79.82 Long term (current) use of aspirin; E11.22 Type 2 diabetes mellitus with diabetic chronic kidney disease; Z79.4 Long term (current) use of insulin; E88.09 Other disorders of plasma-protein metabolism, not elsewhere classified; N40.0 Benign prostatic hyperplasia without lower urinary tract symptoms; Z99.2 Dependence on renal dialysis; E78.5 Hyperlipidemia, unspecified; I25.10 Atherosclerotic heart disease of native coronary artery without angina pectoris; F32.A Depression, unspecified; E03.9 Hypothyroidism, unspecified; D50.9 Iron deficiency anemia, unspecified; N25.0 Renal osteodystrophy; T50.905A Adverse effect of unspecified drugs, medicaments and biological substances, initial encounter; Y92.9 Unspecified place or not applicable
CPT/HCPCS: 36415; 70450-TC; 71045-TC; 73502; 80048-TC; 80053-TC; 80061-TC; 80076-TC; 82550-TC; 82607-TC; 82728-TC; 82962-TC; 83540-TC; 83735-TC; 83880; 83970; 84100-TC; 84484-TC; 85025-TC; 85027-TC; 85610-TC; 85730-TC; 86850-TC; 87081-TC; 90935-TC; 93307-TC; 97110-TC; 97112-TC; 97530-TC; 97535-TC; A4217; A4223; A6209; C1776; G0378; J0360; J0461; J0690; J0885; J1644; J1815; J2270; J2405; J2704; J2765; J2916; J3010; J3370; J3480; J3490; J7030; J7040; J7050; J7060; P9016; P9045

== ENCOUNTER 2024-04-29 06:44 | Inpatient (IN) | payer MEDICARE, OTHER ==
[~2024-04-29] VITALS: Ht 180.3 cm; Wt 51.3 kg
[~2024-04-29 06:44] MED LIST changes: +*INS REG3 SQ; +AMIN30LI66 PO; +ASCO-352 PO; +CLON1PAT2 TD; -CYAN10006 IM; +DOXA1TAB4 PO; +DOXA2TAB2 PO; +FLUO20TA28 PO; +HEPA50008 SQ; +ISOS20TA8 PO; +LABE100T5 PO; +LEVO137T2 PO; +MINO2.5T PO; +MIRT-91 PO; +NETA2.5D3 RIGHTEYE; -NIFE30TA91 PO; +NITR1OIN2 TOP; +PANT40TA49 PO; +POLY17PO4 PO; +SENN8.6T19 PO; -TEMA15CA PO; +TRAM50TA2 PO; +VIT1TABL46 PO
[2024-04-29] MEDS ORDERED: ACETAMINOPHEN ES 500 MG TABLET ONE (06:56)
[2024-04-29] MEDS ORDERED: PIPERACI/TAZO 3.375GM/D5W 50ML PB IV ONE (06:56)
[2024-04-29] MEDS ORDERED: VANCOMYCIN 1 GM /D5W 250 ML PB IV ONE (06:56)
[2024-04-29] MEDS: PIPERACILLIN /TAZOBACTAM 3.375 G in IV D5W 50 ML IV ONE (07:00)
[2024-04-29] MEDS: IV NS 0.9% 1,000 ML BAG IV ONE (07:06)
[2024-04-29] MEDS: ACETAMINOPHEN ES 500 MG TABLET PO ONE (07:08)
[2024-04-29 07:12] LABS: BASOPHILS % (AUTO) 0.4 % (0.0-2.0); HEMATOCRIT 31 % (39-51); HEMOGLOBIN 10.5 g/dL (13.5-17.5); LYMPHOCYTES # (AUTO) 0.1 K/uL (0.8-4.8); LYMPHOCYTES % (AUTO) 2.9 % (20.0-44.0); MEAN CORPUSCULAR HEMOGLOBIN 36 PG (26.0-33.0); MEAN CORPUSCULAR HGB CONC 34 g/dl (31.0-36.0); MEAN CORPUSCULAR VOLUME 107 fL (80-96); MONOCYTES # (AUTO) 0.3 K/uL (0.1-1.30); MONOCYTES % (AUTO) 6.6 % (2.0-12.0); NEUTROPHILS # (AUTO) 4.3 K/uL (1.8-8.9); NEUTROPHILS % (AUTO) 90.1 % (43.0-81.0); PLATELET COUNT (AUTO) 201 K/uL (150-450); RED BLOOD CELL COUNT(AUTO) 2.93 MIL/uL (4.5-6.0); RED CELL DISTRIBUTION WIDTH 16.1 % (11.5-15.0); WHITE BLOOD COUNT (AUTO) 4.8 K/uL (4.3-11.0)
[2024-04-29 07:25] LABS: INR 1.2 (0.91-1.10); PARTIAL THROMBOPLASTIN TIME 36.6 SEC (24.3-34.3); PROTHROMBIN TIME 12.6 SECS (9.2-11.1)
[2024-04-29] MEDS: VANCOMYCIN 1 GM in IV D5W 250 ML IV ONE (07:30)
[2024-04-29 07:31] LABS: CALCIUM, SERUM 8.9 mg/dL (8.5-10.1); CARBON DIOXIDE 25 mmol/L (21-32); CHLORIDE 100 mmol/L (98-107); CREATININE 5.5 mg/dL (0.6-1.3); GLUCOSE 114 mg/dL (74-106); POTASSIUM 4.6 mmol/L (3.5-5.1); SODIUM SERUM 138 mmol/L (136-145); UREA NITROGEN, BLOOD 52 mg/dL (7-18)
[2024-04-29 07:36] LABS: ALANINE AMINOTRANSFERASE 14 U/L (12-78); ALBUMIN 3.2 g/dL (3.4-5.0); ALKALINE PHOSPHATASE 150 U/L (46-116); ASPARTATE AMINOTRANSFERASE 22 U/L (15-37); BILIRUBIN,DIRECT 0.3 mg/dL (0.0-0.2); BILIRUBIN,TOTAL 0.9 mg/dL (0.2-1.0); TOTAL PROTEIN, SERUM 7.9 g/dL (6.4-8.2)
[2024-04-29 07:57] LABS: LACTIC ACID 1.1 mmol/L (0.4-2.0)
[2024-04-29] MEDS ORDERED: ACET325T53 PO (08:12)
[2024-04-29] MEDS ORDERED: DOCU100T2 PO (08:12)
[2024-04-29] MEDS ORDERED: LACT20SO4 PO (08:12)
[2024-04-29] MEDS ORDERED: SUCR1ORA15 PO (08:12)
[2024-04-29] MEDS ORDERED: LABE200T5 PO (08:12)
[2024-04-29] MEDS ORDERED: ZINC57OI4 TP (08:12)
[2024-04-29] MEDS ORDERED: ISOS40TA19 PO (08:12)
[2024-04-29] MEDS ORDERED: HEPA500014 SQ (08:12)
[2024-04-29] MEDS ORDERED: FOLI0.8T23 PO (08:12)
[2024-04-29] MEDS ORDERED: POVI3780 TP (08:12)
[2024-04-29] MEDS ORDERED: MINO2.5T2 PO (08:12)
[2024-04-29] MEDS ORDERED: EPOE3000 SQ (08:12)
[2024-04-29] MEDS ORDERED: CLON0.3T PO (08:12)
[2024-04-29] MEDS ORDERED: ZINC1CAP2 PO (08:12)
[2024-04-29] MEDS ORDERED: NIFE90TA61 PO (08:12)
[2024-04-29] MEDS ORDERED: MULT-594 PO (08:12)
[2024-04-29] MEDS ORDERED: ACET-868 PO (08:12)
[2024-04-29 08:48] LABS: ABG BASE EXCESS -1.5 mmol/L (-2.0-3.0); ABG OXYGEN SATURATION 91.8 % (94.0-98.0); ABG PCO2 43.3 mmHg (35.0-48.0); ABG PO2 70.8 mmHg (83.0-108.0); ABG TOTAL HEMOGLOBIN 10.4 G/dL (13.5-17.5); COHb 0.3 % (0.5-1.5); MetHb 0.1 % (0.0-1.5); O2Hb 91.4 % (94.0-97.0); SITE, ABG RIGHT RADIAL
[2024-04-29] MEDS ORDERED: MAG HYDROX/AL HYDROX/SIMETH 30 ML UDC PO PRN (09:00)
[2024-04-29] MEDS ORDERED: ZOLPIDEM TARTRATE 5 MG TABLET PO PRN (09:00)
[2024-04-29] MEDS ORDERED: Z GUARD REMEDY 4 OZ OINT TP PRN (09:00)
[2024-04-29] MEDS ORDERED: MAGNESIUM HYDROXIDE 30 ML UDC PO PRN (09:00)
[2024-04-29] MEDS ORDERED: HEPARIN SODIUM, PORCINE 5000 UNITS/1 ML VIAL ONE ×2 (09:09→12:25)
[2024-04-29] MEDS: HEPARIN SODIUM, PORCINE 5000 UNITS/1 ML VIAL SQ SCH (09:15)
[2024-04-29] MEDS: CEFEPIME 1 GM in IV D5W 50 ML IV SCH (11:00)
[2024-04-29] MEDS ORDERED: HEPARIN INFUSION/D5W 500 ML IV ONE (12:24)
[2024-04-29] MEDS: HEPARIN INFUSION/D5W 500 ML IV PRN (12:53)
[2024-04-29] MEDS ORDERED: CEFEPIME 2 GM in IV D5W 100 ML IV SCH (13:00)
[2024-04-29 20:00] VITALS: BP 135/66; TEMP 98.1; O2SAT 94
[2024-04-29 20:53] LABS: ABG OXYGEN SATURATION 90.8 % (94.0-98.0); ABG PCO2 36.8 mmHg (35.0-48.0); ABG PH 7.448 (7.350-7.450); ABG PO2 61.8 mmHg (83.0-108.0); ABG TOTAL HEMOGLOBIN 11.1 G/dL (13.5-17.5); COHb 0.7 % (0.5-1.5); MetHb 0.3 % (0.0-1.5); O2Hb 89.9 % (94.0-97.0); SITE, ABG RIGHT RADIAL
[2024-04-29 23:25] VITALS: O2SAT 95
[2024-04-30] VITALS (20 sets, daily range): BP systolic 162–196; BP diastolic 60–100; TEMP 97.7–99.6; O2SAT 90–100
[2024-04-30 06:21] LABS: ABG BASE EXCESS 2.4 mmol/L (-2.0-3.0); ABG OXYGEN SATURATION 98.5 % (94.0-98.0); ABG PCO2 50.2 mmHg (35.0-48.0); ABG PH 7.369 (7.350-7.450); ABG PO2 122.7 mmHg (83.0-108.0); ABG TOTAL HEMOGLOBIN 10.8 G/dL (13.5-17.5); COHb 0.5 % (0.5-1.5); MetHb 0.3 % (0.0-1.5); O2Hb 97.7 % (94.0-97.0); SITE, ABG LEFT BRACHIAL
[2024-04-30 08:47] LABS: BASOPHILS % (AUTO) 0.6 % (0.0-2.0); EOSINOPHILS % (AUTO) 0.2 % (0.0-6.0); HEMATOCRIT 31 % (39-51); HEMOGLOBIN 10.2 g/dL (13.5-17.5); LYMPHOCYTES # (AUTO) 0.3 K/uL (0.8-4.8); LYMPHOCYTES % (AUTO) 7.7 % (20.0-44.0); MEAN CORPUSCULAR HEMOGLOBIN 36 PG (26.0-33.0); MEAN CORPUSCULAR HGB CONC 33 g/dl (31.0-36.0); MEAN CORPUSCULAR VOLUME 108 fL (80-96); MONOCYTES # (AUTO) 0.2 K/uL (0.1-1.30); NEUTROPHILS # (AUTO) 3.5 K/uL (1.8-8.9); NEUTROPHILS % (AUTO) 85.5 % (43.0-81.0); PLATELET COUNT (AUTO) 171 K/uL (150-450); RED BLOOD CELL COUNT(AUTO) 2.84 MIL/uL (4.5-6.0); RED CELL DISTRIBUTION WIDTH 16.1 % (11.5-15.0); WHITE BLOOD COUNT (AUTO) 4.1 K/uL (4.3-11.0)
[2024-04-30 09:50] LABS: CALCIUM, SERUM 8.4 mg/dL (8.5-10.1); CREATININE 4.8 mg/dL (0.6-1.3); MAGNESIUM 2.1 mg/dL (1.8-2.4); PHOSPHORUS 6.9 mg/dL (2.5-4.9)
[2024-04-30 10:05] LABS: ABG BASE EXCESS -1.4 mmol/L (-2.0-3.0); ABG OXYGEN SATURATION 99.3 % (94.0-98.0); ABG PCO2 36.7 mmHg (35.0-48.0); ABG PH 7.412 (7.350-7.450); ABG PO2 180.9 mmHg (83.0-108.0); ABG TOTAL HEMOGLOBIN 10.6 G/dL (13.5-17.5); COHb 0.3 % (0.5-1.5); MetHb 0.3 % (0.0-1.5); O2Hb 98.7 % (94.0-97.0); SITE, ABG LEFT BRACHIAL
[2024-04-30 10:13] LABS: THYROID STIMULATING HORMONE 5.34 uIU/mL (0.358-3.74)
[2024-04-30 12:30] LABS: INR 1.15 (0.91-1.10); PROTHROMBIN TIME 12.1 SECS (9.2-11.1)
[2024-04-30 12:34] LABS: PARTIAL THROMBOPLASTIN TIME 135.2 SEC (24.3-34.3)
[2024-04-30] MEDS ORDERED: IV NS 0.9% 250 ML IV PRN (13:30)
[2024-04-30] MEDS: HEPARIN INFUSION/D5W 500 ML IV PRN (15:10)
[2024-04-30] MEDS: ACETAMINOPHEN 325 MG TABLET PO PRN (17:56)
[2024-04-30] MEDS: hydrALAZINE HCL IV 20 MG VIAL IV PRN ×2 (17:59→23:29)
[2024-04-30] MEDS ORDERED: HEPARIN SODIUM, PORCINE 5000 UNITS/1 ML VIAL SQ SCH (21:00)
[2024-05-01] VITALS (17 sets, daily range): BP systolic 185–213; BP diastolic 65–75; TEMP 98.4–99.7; O2SAT 94–100
[2024-05-01] MEDS: VANCOMYCIN POST DIALYSIS 500MG IV PRN (00:13)
[2024-05-01 05:15] LABS: CALCIUM, SERUM 8.3 mg/dL (8.5-10.1); CREATININE 3.5 mg/dL (0.6-1.3); POTASSIUM 3.6 mmol/L (3.5-5.1)
[2024-05-01] MEDS: ASPIRIN 81 MG TAB.CHEW PO SCH (09:25)
[2024-05-01] MEDS: LEVOTHYROXINE SODIUM 137 MCG TABLET PO SCH (09:25)
[2024-05-01] MEDS: ASCORBIC ACID 500 MG TABLET PO SCH (09:25)
[2024-05-01] MEDS: MINOXIDIL (2.5MG) 2.5 MG TABLET PO SCH (09:25)
[2024-05-01] MEDS: hydrALAZINE HCL 50 MG TABLET PO SCH (09:26)
[2024-05-01] MEDS ORDERED: DEXTROSE 50%-WATER 50 ML DISP.SYRIN IV PRN (10:30)
[2024-05-01] MEDS: BLOOD SUGAR DIAGNOSTIC 1 EACH STRIP IN SCH (11:22)
[2024-05-01] MEDS ORDERED: EPOETIN ALFA (2000 UNIT) 2,000 UNIT/ML VIAL SQ SCH (11:30)
[2024-05-01] MEDS ORDERED: *INSULIN REGULAR(HUMULIN R)HUM 100 UNIT/ML VIAL SQ SCH (12:00)
[2024-05-01] MEDS: SUCRALFATE 1 G/10 ML UDC PO SCH (12:23)
[2024-05-01] MEDS ORDERED: FERRIC CITRATE 420 MG PO SCH (13:00)
[2024-05-01] MEDS: LABETALOL HCL (100MG) 100 MG TABLET PO SCH (16:16)
[2024-05-01] MEDS: NIFEdipine XL (30MG) 30 MG TAB PO SCH (16:16)
[2024-05-01] MEDS: ISOSORBIDE DINITRATE (20MG) 20 MG TABLET PO SCH (16:16)
[2024-05-01] MEDS: INSULIN REGULAR, HUMAN 100 UNIT/ML 3 ML VIAL SQ PRN (22:39)
[2024-05-02] VITALS (13 sets, daily range): BP systolic 135–204; BP diastolic 61–81; TEMP 98–99.1; O2SAT 94–100
[2024-05-02 08:18] LABS: CALCIUM, SERUM 8.3 mg/dL (8.5-10.1); POTASSIUM 3.3 mmol/L (3.5-5.1)
[2024-05-02] MEDS: DOCUSATE SODIUM 100 MG CAPSULE PO SCH (08:52)
[2024-05-02] MEDS: SENNOSIDES 8.6 MG TABLET PO SCH (08:52)
[2024-05-02] MEDS: MULTIVITAMINS,THERAGRAN 1 UDTAB TABLET PO SCH (08:52)
[2024-05-02] MEDS ORDERED: EPOETIN ALFA (10,000 UNIT) 10,000 UNIT/ML VIAL SQ SCH (10:00)
[2024-05-02] MEDS: POTASSIUM CHLORIDE 20 MEQ TAB.PRT.SR PO ONE (10:20)
[2024-05-02] MEDS: ONDANSETRON HCL/PF 4 MG/2 ML VIAL IVP PRN (10:20)
[2024-05-02] MEDS ORDERED: POTASSIUM CHLORIDE 10 MEQ/50 ML PREMIXED IVPB FOR PERIPHERAL LINE IV ONE (13:00)
[2024-05-02] MEDS: POTASSIUM CL. PREMIX PERIPHER. 50 ML IV SCH (13:25)
[2024-05-02] MEDS: EPOETIN ALFA (10,000 UNIT) 10,000 UNIT/ML VIAL SQ SCH (15:00)
[2024-05-02] MEDS: APIXABAN 5 MG TABLET PO SCH (17:44)
[2024-05-02 17:46] LABS: HEMOGLOBIN 11.5 g/dL (13.5-17.5)
[2024-05-03] VITALS: BP 169/62; TEMP 98.4; O2SAT 97
[2024-05-03 04:00] VITALS: BP 180/60; TEMP 98.8; O2SAT 97
[2024-05-03] MEDS: hydrALAZINE HCL IV 20 MG VIAL IV ONE (05:12)
[2024-05-03 07:31] LABS: CALCIUM, SERUM 8.9 mg/dL (8.5-10.1); CREATININE 2.9 mg/dL (0.6-1.3)
[2024-05-03 08:00] VITALS: BP 155/64; TEMP 98.2; O2SAT 93
[2024-05-03 12:00] VITALS: BP 148/62; TEMP 99.3; O2SAT 93
[2024-05-03 16:00] VITALS: BP 146/64; TEMP 99.2; O2SAT 90
[2024-05-03 20:00] VITALS: BP 132/54; TEMP 99.1; O2SAT 95
[2024-05-03] MEDS ORDERED: Medication Not On Formulary EA (Netarsudil Mesylat/Latanoprost (Rocklatan 0.02%-0.005% E RIGHTEYE SCH (22:00)
[2024-05-04] VITALS: BP 138/70; TEMP 99; O2SAT 97
[2024-05-04 04:00] VITALS: BP 154/63; TEMP 98.8; O2SAT 96
[2024-05-04 06:11] LABS: BASOPHILS % (AUTO) 0.5 % (0.0-2.0); EOSINOPHILS % (AUTO) 1.1 % (0.0-6.0); HEMATOCRIT 32 % (39-51); HEMOGLOBIN 10.7 g/dL (13.5-17.5); LYMPHOCYTES # (AUTO) 0.3 K/uL (0.8-4.8); LYMPHOCYTES % (AUTO) 10.4 % (20.0-44.0); MEAN CORPUSCULAR HEMOGLOBIN 35 PG (26.0-33.0); MEAN CORPUSCULAR HGB CONC 33 g/dl (31.0-36.0); MEAN CORPUSCULAR VOLUME 106 fL (80-96); MONOCYTES # (AUTO) 0.2 K/uL (0.1-1.30); MONOCYTES % (AUTO) 4.8 % (2.0-12.0); NEUTROPHILS # (AUTO) 2.8 K/uL (1.8-8.9); NEUTROPHILS % (AUTO) 83.2 % (43.0-81.0); PLATELET COUNT (AUTO) 149 K/uL (150-450); RED BLOOD CELL COUNT(AUTO) 3.05 MIL/uL (4.5-6.0); RED CELL DISTRIBUTION WIDTH 15.7 % (11.5-15.0); WHITE BLOOD COUNT (AUTO) 3.3 K/uL (4.3-11.0)
[2024-05-04 06:35] LABS: ALBUMIN 2.3 g/dL (3.4-5.0); CALCIUM, SERUM 8.8 mg/dL (8.5-10.1); CREATININE 4.1 mg/dL (0.6-1.3); MAGNESIUM 1.8 mg/dL (1.8-2.4); PHOSPHORUS 2.8 mg/dL (2.5-4.9); POTASSIUM 4.1 mmol/L (3.5-5.1)
[2024-05-04 08:00] VITALS: BP 156/66; TEMP 98.4; O2SAT 92
[2024-05-04 08:40] LABS: ANISOCYTOSIS 1+; EOSINOPHILS % (MANUAL) 1 % (0-4); LYMPHOCYTES % (MANUAL) 8 % (16-48); MONOCYTES % (MANUAL) 4 % (0-11.0); NEUTROPHILS % (MANUAL) 87 (42-76); PLATELET ESTIMATE DECREASED
[2024-05-04 10:18] LABS: ALBUMIN 2.4 g/dL (3.4-5.0); BILIRUBIN,TOTAL 0.7 mg/dL (0.2-1.0); CALCIUM, SERUM 8.6 mg/dL (8.5-10.1); CREATININE 4.1 mg/dL (0.6-1.3); MAGNESIUM 1.8 mg/dL (1.8-2.4); PHOSPHORUS 2.9 mg/dL (2.5-4.9); POTASSIUM 4.1 mmol/L (3.5-5.1); TOTAL PROTEIN, SERUM 6.8 g/dL (6.4-8.2)
[2024-05-04 16:00] VITALS: BP 150/60; TEMP 99.7; O2SAT 92
[2024-05-05] VITALS: BP 152/66; TEMP 97.7; O2SAT 96
[2024-05-05 07:16] LABS: BASOPHILS % (AUTO) 0.9 % (0.0-2.0); EOSINOPHILS # (AUTO) 0.2 K/uL (0.0-0.7); HEMATOCRIT 33 % (39-51); HEMOGLOBIN 11.3 g/dL (13.5-17.5); LYMPHOCYTES # (AUTO) 0.5 K/uL (0.8-4.8); LYMPHOCYTES % (AUTO) 15.8 % (20.0-44.0); MEAN CORPUSCULAR HEMOGLOBIN 36 PG (26.0-33.0); MEAN CORPUSCULAR HGB CONC 34 g/dl (31.0-36.0); MEAN CORPUSCULAR VOLUME 106 fL (80-96); MONOCYTES # (AUTO) 0.2 K/uL (0.1-1.30); MONOCYTES % (AUTO) 5.8 % (2.0-12.0); NEUTROPHILS # (AUTO) 2.2 K/uL (1.8-8.9); NEUTROPHILS % (AUTO) 72.5 % (43.0-81.0); PLATELET COUNT (AUTO) 150 K/uL (150-450); RED BLOOD CELL COUNT(AUTO) 3.12 MIL/uL (4.5-6.0); RED CELL DISTRIBUTION WIDTH 15.4 % (11.5-15.0); WHITE BLOOD COUNT (AUTO) 3.1 K/uL (4.3-11.0)
[2024-05-05 08:00] VITALS: BP 170/64; TEMP 98.1; O2SAT 96
[2024-05-05 09:34] LABS: ALBUMIN 2.3 g/dL (3.4-5.0); CALCIUM, SERUM 8.1 mg/dL (8.5-10.1); CREATININE 3.4 mg/dL (0.6-1.3); MAGNESIUM 1.8 mg/dL (1.8-2.4); PHOSPHORUS 2.3 mg/dL (2.5-4.9); POTASSIUM 3.8 mmol/L (3.5-5.1)
[2024-05-05 16:00] VITALS: BP 140/70; TEMP 98.2; O2SAT 98
[2024-05-05 20:00] VITALS: BP 112/63; TEMP 98.1; O2SAT 98
[2024-05-06] VITALS: BP 180/71; TEMP 98.4; O2SAT 95
[2024-05-06 04:00] VITALS: BP 182/70; TEMP 98.2; O2SAT 96
[2024-05-06 07:39] LABS: CALCIUM, SERUM 8.3 mg/dL (8.5-10.1); CREATININE 4.6 mg/dL (0.6-1.3); POTASSIUM 3.9 mmol/L (3.5-5.1)
[2024-05-06 07:58] LABS: EOSINOPHILS # (AUTO) 0.3 K/uL (0.0-0.7); EOSINOPHILS % (AUTO) 8.6 % (0.0-6.0); HEMATOCRIT 33 % (39-51); HEMOGLOBIN 11.1 g/dL (13.5-17.5); LYMPHOCYTES # (AUTO) 0.5 K/uL (0.8-4.8); MEAN CORPUSCULAR HEMOGLOBIN 36 PG (26.0-33.0); MEAN CORPUSCULAR HGB CONC 34 g/dl (31.0-36.0); MEAN CORPUSCULAR VOLUME 105 fL (80-96); MONOCYTES # (AUTO) 0.2 K/uL (0.1-1.30); MONOCYTES % (AUTO) 6.8 % (2.0-12.0); NEUTROPHILS # (AUTO) 2.2 K/uL (1.8-8.9); NEUTROPHILS % (AUTO) 67.6 % (43.0-81.0); PLATELET COUNT (AUTO) 182 K/uL (150-450); RED BLOOD CELL COUNT(AUTO) 3.11 MIL/uL (4.5-6.0); RED CELL DISTRIBUTION WIDTH 15.1 % (11.5-15.0); WHITE BLOOD COUNT (AUTO) 3.2 K/uL (4.3-11.0)
[2024-05-06 08:00] VITALS: BP 138/67; TEMP 97.9; O2SAT 94
[2024-05-06] MEDS ORDERED: APIX5TAB PO (11:02)
[2024-05-06] MEDS ORDERED: CEFE1FRO IV (11:02)
[2024-05-06 16:00] VITALS: BP 119/54; TEMP 97.4; O2SAT 96
[2024-05-06 20:00] VITALS: BP 143/62; TEMP 98.4; O2SAT 98
[2024-05-07 04:10] LABS: HEPATITIS B SURFACE AB Reactive (.)
[2024-05-07 04:51] VITALS: BP 152/62; TEMP 98.4; O2SAT 98
[2024-05-07 08:00] VITALS: BP 182/71; TEMP 97.3; O2SAT 99
[2024-05-07 16:13] VITALS: BP 168/70; TEMP 97.9; O2SAT 95
[2024-05-07 20:00] VITALS: BP 160/66; TEMP 98.2; O2SAT 94
[2024-05-08 04:00] VITALS: BP 158/69; TEMP 98.4; O2SAT 94
[2024-05-08 07:23] LABS: CALCIUM, SERUM 7.8 mg/dL (8.5-10.1); CREATININE 4.4 mg/dL (0.6-1.3); POTASSIUM 3.9 mmol/L (3.5-5.1)
[2024-05-08 08:00] VITALS: BP 128/60; TEMP 97.6; O2SAT 96
[2024-05-08 16:00] VITALS: BP 154/64; TEMP 97.9; O2SAT 97
[2024-05-09 00:05] VITALS: BP 163/67; TEMP 98.1; O2SAT 97
[2024-05-09 06:09] VITALS: BP 165/71; TEMP 98.4; O2SAT 96
[2024-05-09 07:46] LABS: BASOPHILS % (AUTO) 0.8 % (0.0-2.0); EOSINOPHILS # (AUTO) 0.7 K/uL (0.0-0.7); EOSINOPHILS % (AUTO) 11.5 % (0.0-6.0); HEMATOCRIT 33 % (39-51); HEMOGLOBIN 11.2 g/dL (13.5-17.5); LYMPHOCYTES # (AUTO) 0.6 K/uL (0.8-4.8); LYMPHOCYTES % (AUTO) 9.2 % (20.0-44.0); MEAN CORPUSCULAR HEMOGLOBIN 35 PG (26.0-33.0); MEAN CORPUSCULAR HGB CONC 34 g/dl (31.0-36.0); MEAN CORPUSCULAR VOLUME 103 fL (80-96); MONOCYTES # (AUTO) 0.5 K/uL (0.1-1.30); NEUTROPHILS # (AUTO) 4.2 K/uL (1.8-8.9); NEUTROPHILS % (AUTO) 69.5 % (43.0-81.0); PLATELET COUNT (AUTO) 210 K/uL (150-450); RED BLOOD CELL COUNT(AUTO) 3.21 MIL/uL (4.5-6.0); RED CELL DISTRIBUTION WIDTH 15.1 % (11.5-15.0)
[2024-05-09 07:51] LABS: CREATININE 3.8 mg/dL (0.6-1.3); POTASSIUM 3.4 mmol/L (3.5-5.1)
[2024-05-09 08:23] VITALS: BP 158/66; TEMP 98.2; O2SAT 94
[2024-05-09] MEDS ORDERED: NEPRO VAN 237 ML CAN PO PRN (09:00)
[2024-05-09 09:47] VITALS: BP 158/66
== END 2024-05-09 11:27 | DRG 177 ==
LOC: ER 06:51 → TRANSITION 08:34 → TELE 16:18 → TELE-TD 22:35 → TELE1 04-30 10:21 → TELE-TD 04-30 10:33 → MEDSG1 05-03 10:09 → TELE1 05-03 10:18 → MEDSG1 05-04 08:53
PROVIDERS: ADMIT Internal Medicine; ATTEND Nurse Practitioner Family
PROC: 5A1D70Z Performance of Urinary Filtration, Intermittent, Less than 6 Hours Per Day (ICD-10-PCS; principal; 2024-04-29)
DX: J15.69 Pneumonia due to other Gram-negative bacteria (principal); I21.A1 Myocardial infarction type 2; J96.21 Acute and chronic respiratory failure with hypoxia; N18.6 End stage renal disease; J96.22 Acute and chronic respiratory failure with hypercapnia; I13.2 Hypertensive heart and chronic kidney disease with heart failure and with stage 5 chronic kidney disease, or end stage renal disease; I50.32 Chronic diastolic (congestive) heart failure; I82.403 Acute embolism and thrombosis of unspecified deep veins of lower extremity, bilateral; Z20.822 Contact with and (suspected) exposure to COVID-19; I25.10 Atherosclerotic heart disease of native coronary artery without angina pectoris; M89.8X9 Other specified disorders of bone, unspecified site; E11.22 Type 2 diabetes mellitus with diabetic chronic kidney disease; Z79.01 Long term (current) use of anticoagulants; Z79.4 Long term (current) use of insulin; Z79.899 Other long term (current) drug therapy; Z79.890 Hormone replacement therapy; Z79.02 Long term (current) use of antithrombotics/antiplatelets; Z79.82 Long term (current) use of aspirin; D64.9 Anemia, unspecified; E78.5 Hyperlipidemia, unspecified; E03.9 Hypothyroidism, unspecified; E87.6 Hypokalemia; N40.0 Benign prostatic hyperplasia without lower urinary tract symptoms; Y95 Nosocomial condition; Z91.199 Patient's noncompliance with other medical treatment and regimen due to unspecified reason; Z99.2 Dependence on renal dialysis; Z87.81 Personal history of (healed) traumatic fracture
CPT/HCPCS: 36415; 36600; 71045-TC; 71250-TC; 80048-TC; 80053-TC; 80076-TC; 80202-TC; 82040-TC; 82803-TC; 82962-TC; 83605-TC; 83735-TC; 84100-TC; 84443-TC; 84484-TC; 85025-TC; 85027-TC; 85730-TC; 86706; 87040-TC; 87340; 90935-TC; 93307-TC; 93970-TC; 94760-TC; 94761-TC; 94799-TC; 97110-TC; 97530-TC; 99082-TC; A4223; A4349; A6403; G0378; J0360; J0692; J0885; J1644; J1815; J2405; J2543; J3370; J3480; J7030; J7040; J7050; J7060